=== PATIENT | female | born 2000 | race Caucasian/White ===

== ENCOUNTER 2022-12-06 11:14 | Day surgery (SDC) | payer MEDICAID ==
[~2022-12-06] VITALS: Ht 152.4 cm; Wt 43.5 kg
[2022-12-06] MEDS ORDERED: MIDAZOLAM 5 MG/5 ML VIAL ONE (11:55)
[2022-12-06] MEDS ORDERED: MIDAZOLAM 5 MG/5 ML VIAL IV ONE (12:15)
== END 2022-12-06 12:40 | disposition home or self-care (01) ==
LOC: MDS 11:14 → MMU 11:15 → MDS 12:40
PROVIDERS: ATTEND Internal Medicine Gastroenterology
DX: R10.13 Epigastric pain (principal); K21.9 Gastro-esophageal reflux disease without esophagitis; Z20.822 Contact with and (suspected) exposure to COVID-19
CPT/HCPCS: 36415; 43239; 86677; 87426; J2250